=== PATIENT | male | born 1970 | race Caucasian/White ===

== ENCOUNTER → 2019-12-30 | Outpatient (CLI) | payer SELFPAY ==
[~2019-12-30] MED LIST: CONTRAST GIVEN. MC PRN; IOHEXOL 240 MG/ML 50ML VIAL. PO ONE; IOHEXOL 300 MG/ML 100ML VIAL. IV ONE; LISI1TAB23 PO
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
== END ==
LOC: KCIC CT 10:24
PROVIDERS: ATTEND Family Medicine
DX: S22.41XD Multiple fractures of ribs, right side, subsequent encounter for fracture with routine healing (principal); K57.30 Diverticulosis of large intestine without perforation or abscess without bleeding; Z68.30 Body mass index [BMI] 30.0-30.9, adult; V89.2XXD Person injured in unspecified motor-vehicle accident, traffic, subsequent encounter; X58.XXXD Exposure to other specified factors, subsequent encounter
CPT/HCPCS: 74177; Q9966; Q9967